=== PATIENT | female | born 1945 | race Caucasian/White ===

== ENCOUNTER 2017-02-01 09:43 | Emergency (ER) | payer BC ==
[~2017-02-01] VITALS: Ht 160 cm; Wt 88.0 kg
[~2017-02-01 09:43] MED LIST: DIAZ5TAB4; LEVO88TA42; VIC; VITAMINS
[2017-02-01 09:50] VITALS: Ht 160 cm; Wt 88.0 kg
[2017-02-01] MEDS ORDERED: KETOROLAC 30 MG INJ IM STA (10:54)
[2017-02-01] MEDS ORDERED: HYDROCODONE/APAP (5/325) TAB PO ONE (11:00)
[2017-02-01] MEDS ORDERED: ONDANSETRON (ODT) 4 MG TAB ODT STA (11:07)
--- NOTE | 2017-02-01 11:51 | RADRPT ---
PROCEDURE: CT Lumbar Spine without contrast. CLINICAL INDICATION: Back pain. Weakness. Status post fall. Trauma. TECHNIQUE: Noncontrast CT of the lumbar spine was performed with multiplanar reformatted images gen erated from the axial acquired data. The administered radiation dose was CTDI vol = 25.58 mGy, DLP = 663.83 mGy-cm. One or more of the following dose reduction techniques were used: Automated exposur e control, Adjustment of the mA and/or kV according to patient size, or Use of iterative reconstruct ion technique. COMPARISON: There are no similar studies submitted for comparison. FINDINGS: There is minimal levoscoliosis. There is normal lumbar lordosis. The vertebral body heights are maintained. There is no destructive osseous lesion. There is no acute fracture. T12-L1 : There is no disc herniation or spinal canal stenosis. There is mild bilateral facet arthro ralph without bilateral foraminal stenosis. L1-L2 : There is a 1 mm broad-based disk bulge and mild by facet arthropathy without spinal canal or bilateral foraminal stenosis. L2-L3 : There is mild to moderate disk space narrowing. There is a 3 mm broad-based disk bulge with moderate by facet arthropathy and ligamentum flavum infolding without spinal canal stenosis. There is mild left without right foraminal stenosis. L3-L4 : There is severe disk space narrowing with extensive endplate sclerotic degenerative changes . There is 2 mm retrolisthesis with a 6 mm circumferential disk bulge with moderate bilateral facet arthropathy effacing the bilateral lateral recesses with mild to moderate spinal canal stenosis. T here is moderate right with mild to moderate left foraminal stenosis. L4-L5 :There is moderate disk space narrowing. There is a 4 mm broad-based disk bulge with severe b ilateral facet arthropathy and ligamentum flavum infolding causing severe spinal canal stenosis. Th ere is moderate left with mild to moderate right foraminal stenosis. L5-S1 : There is a 3 mm circumferential disk bulge with severe bilateral facet arthropathy without s brooke canal stenosis. There is mild to moderate right with moderate left foraminal stenosis. IMPRESSION: 1. No acute fracture. 2. L4-L5 broad-based disk bulge with severe spinal canal stenosis. There is moderate left and mild to moderate right foraminal stenosis. 3. L3-L4 extensive endplate sclerotic degenerative changes with mild retrolisthesis with a 6 mm circ umferential disk bulge effacing the bilateral lateral recesses with mild to moderate spinal canal s tenosis. There is moderate right and mild to moderate left foraminal stenosis. Further findings as detailed above. RPTAT: PP .Jayson Zavala MD, Date Time Electronically viewed and signed by .Jayson Zavala MD, on 02/01/2017 11:51 .F/
[2017-02-01] MEDS ORDERED: IBUP400T22 PO (12:25)
[2017-02-01] MEDS ORDERED: PRED20TA PO (12:25)
[2017-02-01] MEDS ORDERED: HYDR-906 PO (12:25)
--- NOTE | 2017-02-10 10:47 | ERD ---
ER Documentation Chief Complaint Date/Time DATEOf service: 02/01/17 . Date of dictation 02/10/2007 TIME: 10:44 Chief Complaint back pain rad right leg HPI 71-year-old female presents with low back pain were increasing over the last day. His lower back rating the right leg. Started after awkward movement this morning. She denies any fall, bowel bladder incontinence, weakness, urinary complaints, fevers.She has a history of intermittent low back pain that usually resolves with minimal treatment and rest. ROS All systems reviewed and are negative except as per history of present illness. Medications Home Meds Active Scripts Prednisone* (Prednisone*) 20 Mg Tab, 40 MG PO DAILY for 4 Days, TAB Prov:ROOPA MORALES MD 02/01/17 Ibuprofen* (Motrin*) 400 Mg Tab, 400 MG PO Q6H Y for PAIN, #20 TAB Prov:ROOPA MORALES MD 02/01/17 Hydrocodone/Acetaminophen ([place] 5-325 Tablet) 1 Each Tablet, 1 TAB PO Q6H Y for PAIN, #14 TAB Prov:ROOPA MORALES MD 02/01/17 Reported Medications [Vitamins] No Conflict Check 12/08/11 Diazepam* (Diazepam*) 5 Mg Tablet 10/10/10 Acetaminophen/Hydrocodone (Vicodin) 1 Tab Tab 10/10/10 Levothyroxine Sodium* (Levoxyl*) 88 Mcg Tablet 10/10/10 Allergies Allergies: Coded Allergies: methocarbamol (Verified Allergy, Unknown, 02/24/14) Uncoded Allergies: SULFA (Allergy, Unknown, 02/24/14) PMhx/Soc History of Surgery: Yes (left ankle, hysterectomy, appendectomy, tonsillectomy , breast reduction) Anesthesia Reaction: No Hx Neurological Disorder: No Hx Respiratory Disorders: No Hx Cardiac Disorders: No Hx Psychiatric Problems: No Hx Miscellaneous Medical Probl: Yes (fibromyalgia) Hx Alcohol Use: No Hx Substance Use: No Hx Tobacco Use: No Physical Exam Physical Exam Const: []Alert, not ill-appearing. Head: Atraumatic Eyes: Normal Conjunctiva ENT: Normal External Ears, Nose and Mouth. Neck: Full range of motion..~ No meningismus. Resp: Clear to auscultation bilaterally Cardio: Regular rate and rhythm, no murmurs Abd: Soft, non tender, non distended. Normal bowel sounds Skin: No petechiae or rashes Back: No midline or flank tenderness. Tenderness right L4-5 paraspinous muscles and positive straight leg raise. Difficulty moving due to pain but no weakness or deficits. Ext: No cyanosis, or edema Neur: Awake and alert Psych: Normal Mood and Affect Results 24 hrs Current Medications Medications (Trade) Dose Ordered Sig/Lion Route PRN Reason Start Time Stop Time Status Last Admin Dose Admin Ketorolac Tromethamine (Toradol) 30 mg ONCE STAT IM 02/01/17 10:54 02/01/17 10:56 DC 02/01/17 11:18 Acetaminophen/ Hydrocodone Bitart ([place] (5/325)) 1 tab ONCE ONCE PO 02/01/17 11:00 02/01/17 11:01 DC 02/01/17 11:17 Ondansetron HCl (Zofran Odt) 8 mg ONCE STAT ODT 02/01/17 11:07 02/01/17 11:08 DC 02/01/17 11:18 Procedures/MDM CT lumbar spine show degenerative changes without fracture, dislocation or signs of central disc protrusion or cauda equina. Patient was given Toradol 60 mg IM, [place] and Zofran in stable throughout the ED course. Patient presents with muscle skeletal low back pain and signs of sciatica without evidence of cauda equina syndrome, UTI, epidural abscess, emergent causes of presenting complaints. She will treated with back exercises at home, pain medicine primary care follow-up and return precautions. The patient was stable with no new complaints during the ER course. Clinically, there is no current evidence to suggest meningitis, sepsis, acute abdomen, pneumonia, acute coronary syndrome, pulmonary embolism, or any other emergent condition appearing to require further evaluation or hospitalization. The patient should certainly return for any new or worsening symptoms per the aftercare instructions. They should otherwise follow-up with her primary care doctor for reevaluation this week. Departure Diagnosis: Primary Impression: Sciatica of right side Condition: Stable Patient Instructions: Back Exercises, Lumbar, Back Pain W/ Sciatica Additional Instructions: Recheck with primary doctor this week. Recommend orthopedist or back specialist for further evaluation and treatment. Recommend physical therapy. Recheck for new or worsening symptoms otherwise. ROOPA MORALES MD Feb 10, 2017 10:47
== END 2017-02-01 13:06 | disposition home or self-care (01) ==
LOC: FTE 09:43
DX: M54.41 Lumbago with sciatica, right side (principal)
CPT/HCPCS: 72131; 96372; 99285; J1885

== ENCOUNTER 2018-09-12 15:37 | Emergency (ER) | payer BC ==
[~2018-09-12] VITALS: Ht 172.7 cm; Wt 90.1 kg
[~2018-09-12 15:37] MED LIST changes: +HYDR-4011 PO; +IBUP-1561 PO; +PRED20TA PO
[2018-09-12 15:38] VITALS: BP 187/94; PULSE 86; RESP 20; Ht 172.7 cm; Wt 90.1 kg
[2018-09-12] MEDS ORDERED: HYDROCODONE/APAP (5/325) TAB PO ONE (16:30)
--- NOTE | 2018-09-12 17:08 | ERD ---
ER Documentation Chief Complaint Chief Complaint Left shoulder pain x 2 weeks after massage "made something pop" HPI 72-year-old female patient with a past medical history of fibromyalgia, spinal stenosis presents to the ED stating that she has had left shoulder pain that started about 2 weeks after getting a reflexology massage. States that she felt like something popped. Patient reports that she called her nursing hotline, was sent here to a heart attack due to her symptoms. Patient reports that 2 weeks ago, she felt like she has floaters to her left eye and saw an dealer compliance representative, reports that everything was normal. Denies any chest pain, shortness of breath, nausea, vomiting, diarrhea, neck stiffness. 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 Denies any suicidal, homicidal ideations. ROS All systems reviewed and are negative except as per history of present illness. Medications Home Meds Active Scripts Hydrocodone/Acetaminophen ([place] 5-325 Tablet) 1 Each Tablet, 1 TAB PO QHS PRN for PAIN, #3 TAB Prov:EVAN LOCKETT PA-C 09/12/18 Prednisone* (Prednisone*) 20 Mg Tab, 40 MG PO DAILY for 4 Days, TAB Prov:ROOPA MORALES MD 02/01/17 Ibuprofen* (Motrin*) 400 Mg Tab, 400 MG PO Q6H PRN for PAIN, #20 TAB Prov:ROOPA MORALES MD 02/01/17 Hydrocodone/Acetaminophen ([place] 5-325 Tablet) 1 Each Tablet, 1 TAB PO Q6H PRN for PAIN, #14 TAB Prov:ROOPA MORALES MD 02/01/17 Reported Medications [Vitamins] No Conflict Check 12/08/11 Diazepam* (Diazepam*) 5 Mg Tablet 10/10/10 Acetaminophen/Hydrocodone (Vicodin) 1 Tab Tab 10/10/10 Levothyroxine Sodium* (Levoxyl*) 88 Mcg Tablet 10/10/10 Allergies Allergies: Coded Allergies: methocarbamol (Verified Allergy, Severe, ANAPHALAXIS, 09/12/18) tramadol (Verified Allergy, Severe, ANAPHALAXIS, 09/12/18) sulfacetamide (Verified Allergy, Intermediate, 09/12/18) HEADACHE PMhx/Soc History of Surgery: Yes (left ankle, hysterectomy, appendectomy, tonsillectomy, breast reduction) Anesthesia Reaction: No Hx Neurological Disorder: No Hx Respiratory Disorders: No Hx Cardiac Disorders: No Hx Psychiatric Problems: No Hx Miscellaneous Medical Probl: Yes (fibromyalgia) Hx Alcohol Use: No Hx Substance Use: No Hx Tobacco Use: No Smoking Status: Never smoker FmHx Family History: No diabetes, No coronary disease Physical Exam Vitals Vital Signs Date Temp Pulse Resp B/P (MAP) Pulse Ox O2 O2 Flow FiO2 Time Delivery Rate 09/12/18 86 20 187/94 100 15:38 (125) Physical Exam Const: [id number], well-nourished. In no acute distress. Head: Atraumatic, normocephalic Eyes: Normal Conjunctiva without injection. No purulent discharge. PERRL. EOMI ENT: Normal external ear. Ear canal without erythema. Tympanic membrane pearly matute without effusion or bulging. Nasal canal clear with normal turbinates. Moist oropharynx without tonsillar exudates. Non-erythematous pharynx. Uvula midline. No drooling. No trismus. Neck: Full range of motion. No meningismus. No cervical lymphadenopathy. Resp: Clear to auscultation bilaterally. No wheezing, rhonchi, rales, or crackles. No accessory muscle use. No retractions. Cardio: Regular rate and rhythm. No murmurs, rubs or gallops. Abd: Soft, non tender, non distended. Normal bowel sounds. No palpable masses. No rebound tenderness. No guarding. Skin: No petechiae or rashes Back: No midline tenderness. No CVA tenderness. Ext: No cyanosis, or edema. Neur: Awake and alert. Psych: Normal Mood and Affect Result Diagram: 09/12/18 1638 09/12/18 1638 Results 24 hrs Laboratory Tests Test 09/12/18 16:38 White Blood Count 7.5 10^3/ul Red Blood Count 4.26 10^6/ul Hemoglobin 14.4 g/dl Hematocrit 41.6 % Mean Corpuscular Volume 97.7 fl Mean Corpuscular Hemoglobin 33.8 pg Mean Corpuscular Hemoglobin Concent 34.6 g/dl Red Cell Distribution Width 11.4 % Platelet Count 360 10^3/UL Mean Platelet Volume 9.1 fl Immature Granulocytes % 0.100 % Neutrophils % 62.7 % Lymphocytes % 22.1 % Monocytes % 10.6 % Eosinophils % 3.6 % Basophils % 0.9 % Nucleated Red Blood Cells % 0.0 /100WBC Immature Granulocytes # 0.010 10^3/ul Neutrophils # 4.7 10^3/ul Lymphocytes # 1.7 10^3/ul Monocytes # 0.8 10^3/ul Eosinophils # 0.3 10^3/ul Basophils # 0.1 10^3/ul Nucleated Red Blood Cells # 0.0 10^3/ul Sodium Level 141 mmol/L Potassium Level 4.7 mmol/L Chloride Level 106 mmol/L Carbon Dioxide Level 27 mmol/L Anion Gap 8 Blood Urea Nitrogen 26 mg/dl Creatinine 0.86 mg/dl Est Glomerular Filtrat Rate mL/min > 60 mL/min Glucose Level 114 mg/dl Calcium Level 9.6 mg/dl Troponin I < 0.012 ng/ml Current Medications Medications Dose Sig/Lion Start Time Status Last (Trade) Ordered Route PRN Stop Time Admin Dose Reason Admin 1 tab ONCE ONCE 09/12/18 DC Acetaminophen PO 16:30 / 09/12/18 16:31 Hydrocodone Bitart ([place] (5/325)) Procedures/MDM 72 year old female patient presents to the ED complaining of right shoulder pain.. Patient's blood pressure 187/97 72-year-old female patient with no significant past medical history presents to the ED complaining of left shoulder pain. Patient is afebrile and nontoxic-appearing. An EKG, chest x-ray, should er x-ray, CBC, BMP was ordered to further evaluate patient. Patient has blood pressure is 187/94. No evidence of hypertensive emergency or urgency. No evidence of end organ damage. CBC: No leukocytosis. No e/o of systemic infection. No e/o anemia. CMP: No e/o severe acidosis, alkalosis, renal failure, diabetic ketoacidosis, liver disease EKG reviewed and interpreted by Rate/Rhythm: [75 bpm, Normal Sinus Rhythm] No ectopy, no ST elevations, normal axis. QRS, ST, T-waves: [No changes consistent w/ acute ischemia] Impression: [No evidence of ischemia or arrhythmia] IMPRESSION: Mild central venous congestion. Otherwise no evidence of acute cardiopulmonary process. IMPRESSION: No evidence of acute fracture or dislocation. Mild to moderate degenerative changes. Low suspicion for acute myocardial infarction, pneumothorax, pneumonia, cardiac tamponade, Nlqbl-Pgdowvklg-Dvzbo Syndrome, Brugada Syndrome, pulmonary embolism, AAA, aortic dissection, thoracic aortic dissection, endocarditis, myocarditis, pericarditis, cocaine-related ischemia, Boerhaave's syndrome, cardiac dysrhythmias,meningitis, intracranial bleed, seizure, stroke, TIA, fractures, dislocations or other emergent conditions. Discussed patient with Dr. Ray who agreed with the management discharge plan. Diagnosis: Shoulder Pain Discharge medications: Few tabs of [place] Follow up with primary care physician in 1-2 days. Instructed patient to return to the ED sooner for any worsening symptoms. Patient's questions were answered. Patient is hemodynamically stable. Patient understood and agreed with discharge plan. Patient discharged stable. Disclaimer: Inadvertent spelling and grammatical errors are likely due to EHR/dictation software use and do not reflect on the overall quality of patient care. Also, please note that the electronic time recorded on this note does not necessarily reflect the actual time of the patient encounter. Departure Diagnosis: Primary Impression: Shoulder pain Condition: Stable Patient Instructions: Shoulder Pain (Uncertain Cause) Referrals: [facility] YOU HAVE RECEIVED A MEDICAL SCREENING EXAM AND THE RESULTS INDICATE THAT YOU DO NOT HAVE A CONDITION THAT REQUIRES URGENT TREATMENT IN THE EMERGENCY DEPARTMENT. FURTHER EVALUATION AND TREATMENT OF YOUR CONDITION CAN WAIT UNTIL YOU ARE SEEN IN YOUR DOCTORS OFFICE WITHIN THE NEXT 1-2 DAYS. IT IS YOUR RESPONSIBILITY TO MAKE AN APPOINTMENT FOR FOLOW-UP CARE. IF YOU HAVE A PRIMARY DOCTOR --you should call your primary doctor and schedule an appointment IF YOU DO NOT HAVE A PRIMARY DOCTOR YOU CAN CALL OUR PHYSICIAN REFERRAL HOTLINE AT IF YOU CAN NOT AFFORD TO SEE A PHYSICIAN YOU CAN CHOSE FROM THE FOLLOWING [facility] [address] [facility]. [facility] [address] [facility]. [facility] [address] [facility]. [facility] [address] [facility]. [facility] [address] [facility]. [facility] [address] [facility]. [facility] YOU HAVE RECEIVED A MEDICAL SCREENING EXAM AND THE RESULTS INDICATE THAT YOU DO NOT HAVE A CONDITION THAT REQUIRES URGENT TREATMENT IN THE EMERGENCY DEPARTMENT. FURTHER EVALUATION AND TREATMENT OF YOUR CONDITION CAN WAIT UNTIL YOU ARE SEEN IN YOUR DOCTORS OFFICE WITHIN THE NEXT 1-2 DAYS. IT IS YOUR RESPONSIBILITY TO MAKE AN APPOINTMENT FOR FOLOW-UP CARE. IF YOU HAVE A PRIMARY DOCTOR --you should call your primary doctor and schedule and appointment IF YOU DO NOT HAVE A PRIMARY DOCTOR YOU CAN CALL OUR PHYSICIAN REFERRAL HOTLINE AT . IF YOU CAN NOT AFFORD TO SEE A PHYSICIAN YOU CAN CHOSE FROM THE FOLLOWING [facility] INSTITUTIONS: [facility] [address] [place] [address] [facility] [address] [place], [place] [id number] [place] [address] [address] [place] [address] [facility] URGENT CARE/SPECIALTIES Additional Instructions: Call your primary care doctor TOMORROW for an appointment during the next 2-3 d ays.See the doctor sooner or return here if your condition worsens before your appointment time. EVAN LOCKETT PA-C Sep 12, 2018 17:08
[2018-09-12] MEDS ORDERED: HYDR-4011 PO (17:54)
== END 2018-09-12 18:02 | disposition home or self-care (01) ==
LOC: FTE 15:37
DX: M25.512 Pain in left shoulder (principal); R07.9 Chest pain, unspecified
CPT/HCPCS: 71045; 73030; 80048; 84484; 85025; 93005